=== PATIENT | male | born 1960 | race African-American/Black ===

== ENCOUNTER 2025-02-27 10:11 | Emergency (ER) | payer OTHER ==
[2025-02-27 11:32] LABS: BASOPHILS ABSOLUTE AUTO 0.0 x10-3/uL (0.0-0.3); BASOPHILS PERCENT AUTO 0.7 % (0.3-3.8); EOSINOPHILS ABSOLUTE AUTO 0.1 x10-3/uL (0.0-0.6); EOSINOPHILS PERCENT AUTO 2.6 % (0.1-6.8); LYMPHOCYTES ABSOLUTE AUTO 1.5 x10-3/uL (0.5-4.5); LYMPHOCYTES PERCENT AUTO 38.5 % (15.8-45.3); MEAN PLATELET VOLUME 8.5 fL (6.7-11.0); MONOCYTES ABSOLUTE AUTO 0.3 x10-3/uL (0.0-1.2); MONOCYTES PERCENT AUTO 9.0 % (5.5-15.2); NEUTROPHILS ABSOLUTE AUTO 1.9 x10-3/uL (1.7-6.9); NEUTROPHILS PERCENT AUTO 49.2 % (40.3-71.8); PLATELET COUNT,PLT 212 x10(3)uL (117-477); RED BLOOD CELL COUNT 4.28 x10(6)uL (3.90-5.90); RED CELL DISTRIBUTION WIDTH 12.5 % (12.4-15.0); WHITE BLOOD CELL COUNT,WBC 3.9 x10-3/uL (3.2-10.1)
[2025-02-27 11:36] LABS: BLOOD UREA NITROGEN,BUN 18 mg/dL (7-18); CARBON DIOXIDE,CO2 30 mmol/L (21-32); CHLORIDE,CL 107 mmol/L (100-110); CREATININE 1.3 mg/dL (0.70-1.30); ESTIMATED GFR 61 mL/min (>60); GLUCOSE RANDOM 85 mg/dL (80-116); POTASSIUM,K 4.2 mmol/L (3.5-5.3); SODIUM,NA 145 mmol/L (135-145)
[2025-02-27 11:42] LABS: A/G RATIO 1.1; ALANINE AMINOTRANSFERASE,ALT 20 U/L (12-36); ASPARTATE AMNIOTRANSFERASE,AST 19 IU/L (5-25); BILIRUBIN TOTAL 1.0 mg/dL (0.1-1.3); PROTEIN TOTAL,TP 7.2 g/dL (6.0-8.0)
== END 2025-02-27 13:11 ==
LOC: FB.ED 10:11
DX: M79.662 Pain in left lower leg (principal); M79.652 Pain in left thigh
CPT/HCPCS: 36415; 80053; 83735; 85025; 85379; 86140; 99284; 99285

== ENCOUNTER 2025-03-25 10:21 | Emergency (ER) | payer OTHER | END 2025-03-25 12:53 | disposition home or self-care (01) | LOC: FB.ED 10:21 | DX: S86.912A Strain of unspecified muscle(s) and tendon(s) at lower leg level, left leg, initial encounter (principal); M84.361S Stress fracture, right tibia, sequela; M70.90 Unspecified soft tissue disorder related to use, overuse and pressure of unspecified site; Z79.899 Other long term (current) drug therapy; X58.XXXA Exposure to other specified factors, initial encounter | CPT/HCPCS: 36415; 73552-26-LT; 73552-LT; 73590-26-LT; 73590-LT; 82550; 99283 ==